=== PATIENT | female | born 1935 | race Caucasian/White ===

== ENCOUNTER 2018-11-25 21:34 | Emergency (ER) | payer MEDICARE, SELFPAY ==
[2018-11-25 21:36] VITALS: BP 139/67; PULSE 68; RESP 16; TEMP 36.4; O2SAT 96; BMI 26.9
--- NOTE | 2018-11-25 22:37 | ED.VISSUMM ---
- ER Visit Summary Date of Service: 11/25/18 Chief Complaint: [Pain in right knee and numbness to toes] History of Present Illness: The patient is a 83 F [presents the emergency department complaint of pain in her right knee that she has had for over a year. Patient complains of pain in the knee with walking. Several hours ago patient states that she developed numbness in toes of bilateral feet and she did not know if it was related to the pain in the right knee. Patient also wanted to make sure she was not having a stroke. Patient does have history of prior stroke. Patient only has partial vision in her right eye. Patient denies any speech difficulty or weakness in the extremities. Patient states that the numbness was definitely in both feet and involved only the toes however the toes of the left feet are now feeling normal and she still has some residual numbness in the toes of the right foot but does not involve the great toe.] Patient with history of coronary artery disease, hypertension, high cholesterol, chronic kidney disease, and history of stroke. Physical Examination: [HEENT-PERRLA, EOMI. Cranial nerves II through XII grossly intact. TMs clear. Mucous membranes moist. No adenopathy. Cardiovascular-regular rate and rhythm without murmur or ectopy Lungs-clear to auscultation, chest wall stable without crepitus or subcu emphysema Abdomen-normoactive bowel sounds, soft, nontender, no rebound or rigidity, no peritoneal signs. Neuro icgu-agnkbu-gvln and heel hummel testing within normal limits, negative Romberg, negative , Fundi benign. NIH stroke scale was 0. Patient has sensation in all toes to pinprick and she states the sensation is the same on the right compared to the left. Extremities-intact ?4, normal range of motion, normal pulses both lower extremities from the femoral to the dorsal pedal and posterior tibial arteries., atraumatic.] Test Results: [Patient refused all testing.] Emergency Department Course and Treatment: [I offered the patient x-rays of the right knee as well as blood work to evaluate for electrolytes and CT scan of her head although my suspicion for stroke was low. Given that symptoms initially were bilateral. Patient states that she feels like she feels fine and wants to go home and return if symptoms return or worsen. Patient understands I cannot rule out stroke without further testing such as CT scans and MRIs. Patient understands I cannot rule out electrolyte abnormalities without blood testing.] Treatment Plan: [Patient will follow up with her primary care physician] Disposition: [Discharged home stable condition] Impression: [Chronic right knee pain Paresthesias bilateral toes] This note was generated with [employer] dictation software. It may contain incorrect words, spelling, and punctuation that were not noted in review of the chart prior to signing ED Disposition - Plan for ED Patient: Referrals: [facility] Doctor,Out of [Primary Care Provider] -
--- NOTE | 2018-11-25 22:43 | ED.DCSUM_ITS ---
- ER Visit Summary Date of Service: 11/25/18 Chief Complaint: [Pain in right knee and numbness to toes] History of Present Illness: The patient is a 83 F [presents the emergency department complaint of pain in her right knee that she has had for over a year. Patient complains of pain in the knee with walking. Several hours ago patient states that she developed numbness in toes of bilateral feet and she did not know if it was related to the pain in the right knee. Patient also wanted to make sure she was not having a stroke. Patient does have history of prior stroke. Patient only has partial vision in her right eye. Patient denies any speech difficulty or weakness in the extremities. Patient states that the numbness was definitely in both feet and involved only the toes however the toes of the left feet are now feeling normal and she still has some residual numbness in the toes of the right foot but does not involve the great toe.] Patient with history of coronary artery disease, hypertension, high cholesterol, chronic kidney disease, and history of stroke. Physical Examination: [HEENT-PERRLA, EOMI. Cranial nerves II through XII grossly intact. TMs clear. Mucous membranes moist. No adenopathy. Cardiovascular-regular rate and rhythm without murmur or ectopy Lungs-clear to auscultation, chest wall stable without crepitus or subcu emphysema Abdomen-normoactive bowel sounds, soft, nontender, no rebound or rigidity, no peritoneal signs. Neuro gccq-vqckog-tsqg and heel hummel testing within normal limits, negative Romberg, negative , Fundi benign. NIH stroke scale was 0. Patient has sensation in all toes to pinprick and she states the sensation is the same on the right compared to the left. Extremities-intact ?4, normal range of motion, normal pulses both lower extremities from the femoral to the dorsal pedal and posterior tibial arteries., atraumatic.] Test Results: [Patient refused all testing.] Emergency Department Course and Treatment: [I offered the patient x-rays of the right knee as well as blood work to evaluate for electrolytes and CT scan of her head although my suspicion for stroke was low. Given that symptoms initially were bilateral. Patient states that she feels like she feels fine and wants to go home and return if symptoms return or worsen. Patient understands I cannot rule out stroke without further testing such as CT scans and MRIs. Patient unde rstands I cannot rule out electrolyte abnormalities without blood testing.] Treatment Plan: [Patient will follow up with her primary care physician] Disposition: [Discharged home stable condition] Impression: [Chronic right knee pain Paresthesias bilateral toes] This note was generated with [employer] dictation software. It may contain incorrect words, spelling, and punctuation that were not noted in review of the chart prior to signing ED Disposition - Plan for ED Patient: Referrals: [facility] Doctor,Out of [Primary Care Provider] -
--- NOTE | 2018-11-25 22:43 | ED.DEP ---
ED Disposition - Plan for ED Patient: Instructions: ED Knee Pain [facility], ED Paraesthesias Referrals: [facility],Out of [Primary Care Provider] -
== END 2018-11-25 22:53 | disposition home or self-care (01) ==
PROVIDERS: Emergency Provider Emergency Medicine
DX: M25.561 Pain in right knee (principal); G89.29 Other chronic pain; R20.2 Paresthesia of skin; I25.10 Atherosclerotic heart disease of native coronary artery without angina pectoris; I12.9 Hypertensive chronic kidney disease with stage 1 through stage 4 chronic kidney disease, or unspecified chronic kidney disease; N18.9 Chronic kidney disease, unspecified; Z86.73 Personal history of transient ischemic attack (TIA), and cerebral infarction without residual deficits
CPT/HCPCS: 99282